=== PATIENT | male | born 1955 ===

== ENCOUNTER 2016-11-15 18:51 | Emergency (ER) | payer MEDICAID ==
[2016-11-15 18:52] VITALS: BMI 20.4
[2016-11-15 19:12] VITALS: RESP 20
[2016-11-15 20:54] LABS: BASO % 0.5 % (0.0-2.0); EOS % 0.4 % (0.0-4.0); HEMATOCRIT 45.6 % (35.0-51.0); LYMPH % 13.3 % (20.0-40.0); MEAN CORPUSCULAR HEMOGLOBIN 30.1 pg (27.0-31.0); MEAN CORPUSCULAR HGB CONC 33.4 g/dL (33.0-37.0); MEAN PLATELET VOLUME 6.3 fL (7.2-11.7); MONO # 0.7 K/uL (0.0-0.8); MONO % 8.7 % (0.0-10.0); RED CELL DISTRIBUTION WIDTH 13.3 % (11.5-14.5); WHITE BLOOD COUNT 7.5 K/uL (4.8-10.8)
[2016-11-15 21:00] LABS: CHLORIDE 96 mmol/L (98-107); SODIUM 138 mmol/L (132-148)
[2016-11-15 21:01] LABS: POTASSIUM 3.8 mmol/L (3.6-5.2)
[2016-11-15 21:03] LABS: ALB/GLOB RATIO 1.4 (1.0-2.1); ALKALINE PHOSPHATASE 75 U/L (38-126); ALT/SGPT 30 U/L (21-72); AST/SGOT 35 U/L (17-59); BILIRUBIN,TOTAL 0.7 mg/dL (0.2-1.3); BLOOD UREA NITROGEN 21 mg/dL (9-20); CARBON DIOXIDE 34 mmol/L (22-30); GFR AFRICAN-AMERICAN > 60; GLUCOSE,RANDOM 100 mg/dL (75-110); TOTAL PROTEIN 7.6 g/dL (6.3-8.3)
[2016-11-15 21:04] LABS: CALCIUM 9.3 mg/dl (8.6-10.4)
[2016-11-15 21:08] LABS: RBC URINE 1 /hpf (0-3); URINE BACTERIA RARE (<OCC); URINE BILIRUBIN NEGATIVE (NEGATIVE); URINE BLOOD NEGATIVE (NEGATIVE); URINE COLOR Yellow (YELLOW); URINE GLUCOSE (UA) NORMAL (Normal); URINE KETONE NEGATIVE (NEGATIVE); URINE LEUKOCYTE ESTERASE NEG Leu/uL (Negative); URINE PROTEIN NEGATIVE (NEGATIVE); URINE UROBILINOGEN NORMAL mg/dL (0.2-1.0)
--- NOTE | 2016-11-15 21:45 | C.PDOC ---
History Of Present Illness 61 y/o male presents to ED with c/o urinary frequency, incontinent dribbling, and feeling of retention for 3 days. Patient has been seen multiple times for the same complaints in this ER, with multiple referrals to urology. Patient was last evaluated in this ER on 11/02 and case was discussed with Dr. Shaw who stated that he would see the patient in his office on 11/17/16, but patient has not arranged for appointment. Patient reports he has been taking Flomax BID. Otherwise, denies fever, chills, hematuria, nausea, vomiting, or other associated symptoms. Time Seen by Provider: 11/15/16 19:59 Chief Complaint (Nursing): Male Genitourinary History Per: Patient History/Exam Limitations: no limitations Onset/Duration Of Symptoms: Days, Persistent Current Symptoms Are (Timing): Still Present Associated Symptoms: Urinary Symptoms. denies: Fever, Chills, Diarrhea, Back Pain Recent travel outside of the [place]: No Past Medical History Reviewed: Historical Data, Nursing Documentation, Vital Signs Vital Signs: Last Vital Signs Temp 97.8 F 11/15/16 19:09 Pulse 105 H 11/15/16 19:09 Resp 20 11/15/16 19:09 BP 147/94 H 11/15/16 19:09 Pulse Ox 98 11/15/16 21:48 - Medical History PMH: Asthma, HTN - [facility] Procedures EXCISION OF ASCENDING COLON, ENDO, DIAGN (08/20/16) EXCISION OF SIGMOID COLON, ENDO, DIAGN (08/20/16) INSERTION OF VAD INTO CHEST SUBCU/FASCIA, OPEN APPROACH (08/20/16) INSPECTION OF UPPER INTESTINAL TRACT, ENDO (08/20/16) INSPECTION OF UPPER VEIN, EXTERNAL APPROACH (08/20/16) Family History: States: Unknown Family Hx - Social History Hx Tobacco Use: No Hx Alcohol Use: Yes Hx Substance Use: No - Immunization History Hx Tetanus Toxoid Vaccination: No Hx Influenza Vaccination: No Hx Pneumococcal Vaccination: No Review Of Systems Except As Marked, All Systems Reviewed And Found Negative. Constitutional: Negative for: Fever, Chills Genitourinary: Positive for: Frequency, Incontinence. Negative for: Hematuria, Penile Pain Skin: Negative for: Rash Physical Exam - Physical Exam Appears: Non-toxic, No Acute Distress Skin: Normal Color, Warm, Dry Head: Atraumatic, Normacephalic Oral Mucosa: Moist Chest: Symmetrical Cardiovascular: Rhythm Regular Respiratory: Normal Breath Sounds, No Rales, No Rhonchi, No Wheezing Gastrointestinal/Abdominal: Soft, No Tenderness, No Distention, Other (no bladder distention) Back: Normal Inspection Extremity: Normal ROM, Capillary Refill (< 2 sec. ) Neurological/Psych: Oriented x3, Normal Speech, Normal Cognition ED Course And Treatment - Laboratory Results Result Diagrams: 11/15/16 20:45 11/15/16 20:45 Lab Interpretation: No Changes Compared To Prior Results O2 Sat by Pulse Oximetry: 98 (RA) Pulse Ox Interpretation: Normal Disposition Counseled Patient/Family Regarding: Studies Performed, Diagnosis, Need For Followup - Disposition Referrals: Zak Shaw MD [Staff Provider] - Disposition: HOME/ ROUTINE Disposition Time: 21:43 Condition: STABLE Additional Instructions: Continue to take the Flomax twice a day as prescribed. Instructions: Dysuria (ED) Print Language: ALGERIAN - Clinical Impression Clinical Impression: Enlarged prostate, Dysuria, Urinary frequency - Scribe Statement The provider has reviewed the documentation as recorded by the Jarrett Barros Provider Attestation: All medical record entries made by the Jarrett were at my direction and personally dictated by me. I have reviewed the chart and agree that the record accurately reflects my personal performance of the history, physical exam, medical decision making, and the department course for this patient. I have also personally directed, reviewed, and agree with the discharge instructions and disposition.
[2016-11-15 23:03] VITALS: BP 129/76; PULSE 72; TEMP 98; O2SAT 97
== END 2016-11-15 23:01 | disposition home or self-care (01) ==
LOC: C.ER 18:51
DX: N40.0 Benign prostatic hyperplasia without lower urinary tract symptoms (principal); R30.0 Dysuria; R35.0 Frequency of micturition